=== PATIENT | female | born 1950 | race Caucasian/White ===

== ENCOUNTER 2024-03-03 14:12 | Outpatient (CLI) | payer MEDICARE, SELFPAY ==
--- NOTE | ~2024-03-03 | MM_ITS ---
EXAMINATION: MM screening eugenie BI w ramonita HISTORY: Screening TECHNIQUE: Craniocaudal and mediolateral oblique 3-D tomosynthesis images were obtained and synthetic 2-D images were generated. CAD analysis was submitted and interpreted. COMPARISON: No prior studies for comparison. BREAST PARENCHYMAL COMPOSITION: There are scattered areas of fibroglandular density. FINDINGS: There is no evidence of suspicious mass, calcification, or architectural distortion to sugg est malignancy in either breast. There has been no suspicious interval change. IMPRESSION: 1. No mammographic evidence of malignancy. 2. Recommend routine screening mammography in one year. BI-RADS Category 1: Negative Reviewed, dictated and finalized at location A.
== END 2024-03-03 14:13 | disposition home or self-care (01) ==
LOC: ANHIMG 14:15
PROVIDERS: PCP Internal Medicine; Visit Provider Obstetrics & Gynecology
DX: Z12.31 Encounter for screening mammogram for malignant neoplasm of breast (principal)
CPT/HCPCS: 77063; 77067

== ENCOUNTER 2024-10-10 13:31 | Outpatient (CLI) | payer MEDICARE, SELFPAY ==
--- NOTE | 2024-10-10 | ECG_ITS ---
Test Date: 2024-10-10 14:14:13 Measurements Intervals [place] Rate: 62 P: 65 CT: 160 QRS: 53 QRSD: 89 T: 47 QT: 416 QTc: 424 Interpretive Statements SINUS RHYTHM CONSIDER RIGHT VENTRICULAR CONDUCTION DELAY LOW QRS VOLTAGE IN PRECORDIAL LEADS BASELINE ARTIFACT- I, II, AVR, AVL BORDERLINE ECG No previous ECG available for comparison Electronically Signed On 10-10-2024 14:23:59 SCALLOPER by Ori Munson D.O.
== END 2024-10-10 13:32 | disposition home or self-care (01) ==
LOC: ANHIMG 13:36 → ANHCARD 13:39
PROVIDERS: PCP Internal Medicine; Visit Provider Podiatrist Foot & Ankle Surgery
DX: Z01.818 Encounter for other preprocedural examination (principal); I45.9 Conduction disorder, unspecified
CPT/HCPCS: 93005

== ENCOUNTER 2024-11-30 10:40 | Outpatient (CLI) | payer MEDICARE, SELFPAY ==
--- NOTE | ~2024-11-30 | DEXA_ITS ---
Bone Density Report Name: AMBER REES Age: 74 Sex: Female Ethnicity: White Date of : 1950 Indication: postmenopausal; screening for osteoporosis; hysterectomy; Referring Provider: CLAIR, SELENE Espinoza Study: Bone densitometry was performed. Exam Date: November 30, 2024 Accession number: [id number] Bone Density: Region BMD T-score Z-score Classification AP Spine(L1-L4) 1.013 -0.3 2.0 Normal Femoral Neck (Left) 0.803 -0.4 1.6 Normal Total Hip (Left) 0.892 -0.4 1.3 Normal Femoral Neck (Right) 0.821 -0.3 1.8 Normal Total Hip (Right) 0.903 -0.3 1.4 Normal Total Hip Mean 0.898 -0.4 1.4 Normal World Health Organization criteria for BMD impression classify patients as: Normal (T-score at or above -1.0), Osteopenia (T-score between -1.0 and -2.5), or Osteoporosis (T-score at or below -2.5). 10-year Fracture Risk: FRAX not reported because: All T-scores for Spine Total, Hip Total, Femoral Neck at or above -1.0 Clinical Information Provided by Patient: Smokes Has used the following medications: Boniva (i.e. ibandronate), Fosamax (i.e. alendronate), HRT (i.e. estrogen/hormone therapy), Vitamin D Has the following medical conditions: Hysterectomy, hypothyroid Patient maximum height was 61.5 Menopause Age: 41 Onset of menses at age 13 Number of children 1 Impression: The patient has normal bone mass. The patient has risk factors, including: smoking. Discussion: BONE DENSITY IS ABOVE THE MINIMUM DESIRABLE LEVEL AT ALL SKELETAL SITES TESTED. This patient?s bone mineral density is above the minimum desirable level (T-score -1.0 or better) at all sites measured. The patient should follow a healthful lifestyle (good nutrition with adequate calcium and vitamin D, and appropriate weight-bearing exercise). Follow-Up: Consider repeating this study in 5 years or sooner if there is some new clinical indication. Reported by: NARA on 11/30/2024 11:22:00 AM. Reviewed, dictated and finalized at location [facility]
== END 2024-11-30 10:41 | disposition home or self-care (01) ==
LOC: ANHIMG 10:41
PROVIDERS: PCP Internal Medicine; Visit Provider Internal Medicine
DX: Z78.0 Asymptomatic menopausal state (principal); Z13.820 Encounter for screening for osteoporosis
CPT/HCPCS: 77080

== ENCOUNTER 2025-04-10 15:51 | Outpatient (CLI) | payer MEDICARE, SELFPAY ==
--- NOTE | ~2025-04-10 | MM_ITS ---
EXAMINATION: MM screening eugenie BI w ramonita HISTORY: Screening TECHNIQUE: Craniocaudal and mediolateral oblique 3-D tomosynthesis images were obtained and synthetic 2-D images were generated. CAD analysis was submitted and interpreted. COMPARISON: Comparison to multiple prior studies sequentially, with oldest reviewed study dated 09/30. BREAST PARENCHYMAL COMPOSITION: Not dense: There are scattered areas of fibroglandular density. FINDINGS: There is no evidence of suspicious mass, calcification, or architectural distortion to sugg est malignancy in either breast. There has been no suspicious interval change. IMPRESSION: 1. No mammographic evidence of malignancy. 2. Recommend routine screening mammography in one year. BI-RADS Category 1: Negative Reviewed, dictated and finalized at location A.
--- OUTSIDE RECORDS SUMMARY | 2025-04-10 15:55 | XMS_ITS | Referral Summary ---
Author Organization [facility] Address [address] [place] [address] Care Team Providers Care Senior Consumer Insights Consultant Name Role Phone Ranjit Whaley MD Primary Care Provider [phone] Allergies Active Allergy Reactions Criticality Noted Date Comments Erythromycin Stomach upset Low 05/21/2020 Onion Diarrhea,Flatulence,Stomach upset Low Penicillins Rash Medium 05/21/2020 Medications fluticasone propionate (FLONASE) 50 mcg/actuation nasal spray Administer 1 spray into each nostril daily Active multivit-min/fe rrous fumarate (MULTI VITAMIN ORAL) Take by mouth Active aspirin 81 mg enteric coated tablet Take 81 mg by mouth daily Active folic acid (FOLVITE) 1 mg tablet Take 1 mg by mouth daily Active calcium carbonate (CALCIUM 500 ORAL) Take by mouth Active famotidine (PEPCID) 20 mg tablet Take by mouth daily as needed 2 Active rosuvastatin (CRESTOR) 5 mg tablet Take 1 tablet (5 mg total) by mouth daily 30 tablet 11 4 07/17/20 25 Active omeprazole (PriLOSEC) 20 mg capsule Take 1 capsule by mouth once daily 90 capsule 3 4 Active levothyroxine (SYNTHROID) 88 mcg tablet TAKE 1 TABLET BY MOUTH ONCE DAILY IN THE MORNING 90 tablet 3 4 Active losartan-hydroC HLOROthiazide (HYZAAR) 50-12.5 mg per tablet Take 1 tablet by mouth once daily 90 tablet 3 4 Active Active Problems Problem Noted Date Diagnosed Date Essential hypertension 07/14/2022 Hypothyroidism 07/14/2022 Hyperlipidemia 07/14/2022 Encounter for screening mamm ogram for malignant neoplasm of breast 07/14/2022 Menopause 07/14/2022 Mucous cyst of finger 06/05/2019 Overview (06/05/2019): Added automatically from request for surgery [id number] 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 Immunizations Immunization Administration Dates Next Due Influenza, Trivalent, High D ose, Split, Preservative Free, Intramuscular 09/08/2018,08/29/2017,08/31/2016 Influenza, Unspecified 09/08/2018,08/29/2017,01/2016 Pfizer SARS-CoV-2 Monovalent Vaccination (12+ Yrs) PURPLE 01/16/2021,12/25/2020 Pneumococcal Conjugate PCV 13 08/31/2016 Pneumococcal Polysaccharide PPV23 09/07/2017 ZOSTER LIVE 10/24/2013 Social History Tobacco Use Types Packs/Day Years Used Date Smoking Tobacco: Never Smokeless Tobacco: Never Tobacco Cessation:Counseling Given: Not Answered Alcohol Use Standard Drinks/Week Comments Yes 0 (1 standard drink = 0.6 oz pur e alcohol) PHQ-2 Answer Date Recorded PHQ-2 Total Score (If total score is 3 or more points, staff should administer the PHQ-9) 0 07/16/2024 Personal Safety Answer Date Recorded Getting School Help Needed Not on file 11/14 Comments Unknown Sex and Gender Information Value Date Recorded Sex Assigned at Not on file Legal Sex Female 3:02 AM ELECTRICIAN STATION ASSISTANT Gender Identity Not on file Sexual Orientation Not on file Occupation Industry Job Start Date Job End Date EMPLOYED Not on file Not on file Not on file Last Filed Vital Signs Vital Sign Reading Time Taken Comments Blood Pressure 136/82 07/17/2024 8:39 AM CDT Pulse 60 07/17/2024 8:39 AM CDT Temperature - - Respiratory Rate - - Oxygen Saturation - - Inhaled Oxygen Concentration - - Weight 63.5 kg (140 lb) 07/17/2024 8:39 AM CDT Height 157.5 cm (5' 2 ) 07/17/2024 8:39 AM CDT Body Mass Index 25.61 07/17/2024 8:39 AM CDT Plan of Treatment Not on file Procedures Procedure Name Priority Date/Time Associated Diagnosis Comments HEPATIC FUNCTION PANEL Routine 01/17/2025 7:30 AM ELECTRICIAN STATION ASSISTANT Hyperlipidemia, unspecified hyperlipidemia type LIPID PANEL Routine 01/17/2025 7:30 AM ELECTRICIAN STATION ASSISTANT Hyperlipidemia, unspecified hyperlipidemia type HEPATITIS C ANTIBODY Routine 07/17/2024 9:48 AM CDT Post-menopausal Hyperlipidemia, unspecified hyperlipidemia type Essential hypertension Hypothyroidism, unspecified type Routine general medical examination at a health care facility Encounter for hepatitis C screening test for low risk patient SCREENING MAMMOGRAM BILATERAL W [place] Schedule Routine, Read Routine (OP Routine) 11/24/2022 9:59 AM ELECTRICIAN STATION ASSISTANT Encounter for screening mammogram for malignant neoplasm of breast DEXA AXIAL SKELETON BONE DENSITY 1 OR MORE SITES Schedule Routine, Read Routine (OP Routine) 11/24/2022 9:26 AM ELECTRICIAN STATION ASSISTANT Menopause from Last 3 Months or Most Recently Relevant to Health Maintenance Results * Hepatic function panel (01/17/2025 7:30 AM ELECTRICIAN STATION ASSISTANT) Protein, Total 7.3 6.4 - 8.4 g/dL [facility] Albumin 4.7 3.6 - 5.1 g/dL [facility] Globulin 2.6 2.2 - 4.0 g/dL (calc) [facility] Alb/glob ratio 1.8 0.9 - 2.3 (calc) [facility] Bilirubin, total 0.4 0.2 - 1.2 mg/dL [facility] Bilirubin, direct 0.1 < OR = 0.2 mg/dL [facility] Bilirubin, indirect 0.3 0.2 - 1.2 mg/dL (calc) [facility] Alk phos 60 37 - 153 U/L [facility] AST 17 10 - 35 U/L [facility] ALT (SGPT) 8 6 - 29 U/L [facility] Blood 01/17/2025 7:30 AM ELECTRICIAN STATION ASSISTANT 01/17/2025 7:30 AM ELECTRICIAN STATION ASSISTANT Narrative [facility] - 01/18/2025 2:27 AM ELECTRICIAN STATION ASSISTANT FASTING:YES FASTING: YES Ranjit Whaley MD LAB BLOOD ORDERABLES Final Re sult Performing Organization Address [facility]/ZIP Co de Phone Number HERBERT [facility] [address] [phone] * Lipid panel (01/17/2025 7:30 AM ELECTRICIAN STATION ASSISTANT) Pathologist [facility] Cholesterol 196 <200 mg/dL [facility] HDL 86 > OR = 50 mg/dL [facility] Triglycerides 132 <150 mg/dL [facility] LDL 87 mg/dL (calc) [facility] Comment: Reference range: <100 Desirable range <100 mg/dL for primary prevention; <70 mg/dL for patients with CHD or diabetic patients with > or = 2 CHD risk factors. LDL-C is now calculated using the Chemo-Bradford calculation, which is a validated novel method providing better accuracy than the Friedewald equation in the estimation of LDL-C. Chemo SS et al. MEJIA. 2013;310(19): 0347-7951 (http://education.[employer].MetaNotes/faq/YSD912) Chol/HDL ratio 2.3 <5.0 (calc) [facility] Non-HDL, (LDL+VLDL) 110 <130 mg/dL (calc) [facility] Comment: For patients with diabetes plus 1 major ASCVD risk factor, treating to a non-HDL-C goal of <100 mg/dL (LDL-C of <70 mg/dL) is considered a therapeutic option. Blood 01/17/2025 7:30 AM ELECTRICIAN STATION ASSISTANT 01/17/2025 7:30 AM ELECTRICIAN STATION ASSISTANT Narrative [facility] - 01/18/2025 2:27 AM ELECTRICIAN STATION ASSISTANT FASTING:YES FASTING: YES Ranjit Whaley MD LAB BLOOD ORDERABLES Final Re sult Performing Organization Address City/[facility]/ZIP Co de Phone Number HERBERT [facility] [address] [phone] * Hepatitis C antibody Blood (07/17/2024 9:48 AM CDT) Hep C Ab Non Reactive Non Reactive [facility] - 01 Comment: HCV antibody alone does not differentiate between previously resolved infection and active infection. Equivocal and Reactive HCV antibody results should be followed up with an HCV RNA test to support the diagnosis of active HCV infection. Blood 07/17/2024 9:48 AM CDT 07/17/2024 Narrative [facility] - 07/18/2024 5:08 AM CDT Performed at: - [address] [id number] Sustainable Development Policy Analyst: Kedar Morrison PhD, Phone: [phone] us Ranjit Whaley MD LAB MICROBIOLOGY - GENERAL OR DERABLES Final Result [facility] - * Screening Mammogram Bilateral [place] (11/24/2022 9:59 AM ELECTRICIAN STATION ASSISTANT) Anatomical Region Laterality Modality Breast Bilateral Mammography Narrative 11/25/2022 4:31 PM ELECTRICIAN STATION ASSISTANT Mammogram Technique: Bilateral Digital Breast Tomosynthesis, Bilateral C-view 2D Screening mammogram. Views obtained: bilateral craniocaudal and bilateral mediolateral oblique. Computer Aided Detection was performed. Mammogram Findings: The present examination has been compared to prior imaging studies performed at [facility] on 11/17/2019, 11/19/2020 and 11/20/2021. There are scattered areas of fibroglandular density. There is no suspicious abnormality in either breast. Impression: There is no mammographic evidence of malignancy. Annual screening mammography is recommended. OVERALL FINAL ASSESSMENT: BI-RADS CATEGORY 1: Negative. Procedure Note Marah Armendariz MD - 11/25/2022 Mammogram Technique: Bilateral Digital Breast Tomosynthesis, Bilateral C-view 2D Screening mammogram. Views obtained: bilateral craniocaudal and bilateral mediolateral oblique. Computer Aided Detection was performed. Mammogram Findings: The present examination has been compared to prior imaging studies performed at [facility] on 11/17/2019, 11/19/2020 and 11/20/2021. There are scattered areas of fibroglandular density. There is no suspicious abnormality in either breast. Impression: There is no mammographic evidence of malignancy. Annual screening mammography is recommended. OVERALL FINAL ASSESSMENT: BI-RADS CATEGORY 1: Negative. us Ranjit Whaley MD IMG MAMMO PROCEDURES Final Re sult * Dexa Axial Skeleton Bone Density 1 or 2 Site (11/24/2022 9:26 AM ELECTRICIAN STATION ASSISTANT) Anatomical Region Laterality Modality Body N/A Digital Radiogra phy 11/24/2022 9:45 AM ELECTRICIAN STATION ASSISTANT Impressions 11/24/2022 10:06 AM ELECTRICIAN STATION ASSISTANT 1. The bone mineral density of the lumbar spine is normal. There has been no significant change in bone mineral density since the baseline examination of 09/06/2007. 2. The bone mineral density of the left femoral neck is normal. There has been no significant change in bone mineral density since the baseline examination of 09/06/2007. 3. The bone mineral density of the left total hip is normal. There has been a statistically significant decrease in bone mineral density since the baseline examination of 09/06/2007. 4. Overall, the above findings are normal by WHO criteria. 5. Calculation of fracture risk using the FRAX model is not appropriate in certain settings. It was not performed in this patient because the patient met the following condition(s): normal bone density. General comments regarding interpretation of bone density measurements: A) In children, premenopausal woman and males under age 50 not at increased risk for fractures only Z-scores, not T-scores are used to indicate risk. A Z-score above -2.0 is defined as within the expected range for age and Z-score at or less than -2.0 is below the expected range for age . A Z-score below the expected range for age in a patient with recent fractures and/or chronic corticosteroid treatment is consistent with a diagnosis of osteoporosis. B) In post menopausal women and males over 50, comparison of the measured bone mineral density with the average value in young normal subjects (the T-score ) has been found to be useful in assessing fracture risk. Fracture risk approximately doubles for each 1.0 standard deviation (SD) in individual's hip or spine bone mineral density is below the average value of young normal subjects. The World Health Organization (WHO) has defined T-scores of -1.0 to -2.5 as diagnostic of low bone mass (OSTEOPENIA), and T-scores of -2.5 or lower to be diagnostic of OSTEOPOROSIS, based on the site of lowest bone density. Note that there will be a change in reporting format and reference databases as patients move from the younger population (group A) to the older population (group B) The National Osteoporosis Foundation (www.nof.org) recommends adequate intake of calcium and vitamin D and regular weight-bearing exercise in all patients. They recommend pharmacologic treatment in postmenopausal women and men age 50 and older presenting with any of the followin) Osteoporosis, after appropriate evaluation to exclude secondary causes. 2) A hip or vertebral (clinical or radiographic) fracture, regardless of the bone density. 3) Low bone mass (Osteopenia) and one or more of: other prior fractures, secondary causes associated with high risk of fracture (such as glucocorticoid use or total immobilization), or computed high risk of fracture (10-yr probability of hip fracture >= 3% or a 10-yr probability of any major osteoporosis-related fracture >= 20% based on the [place].-adapted WHO algorithm), available at http://www.shef.ac.uk/FRAX). Dictated by: Alyce Buck MD The radiology attending physician has personally reviewed this study, and had reviewed and/or edited this written report and agrees with it. Electronically signed by: Ariel Bassett M.D. Narrative 11/24/2022 10:06 AM ELECTRICIAN STATION ASSISTANT BONE DENSITOMETRY OF THE SPINE AND HIP DATE OF STUDY: 11/24/2022 HISTORY: 72-year-old with a history of early menopause and no known prior diagnosis of low bone mineral density. She is not currently on any medications for bone mineral density. Evaluate bone mineral density. Additional risk factors for fracture: No FINDINGS (SPINE): The bone mineral density of L1, L3, L4 was assessed by dual-energy x-ray absorptiometry. The average bone mineral density within this region is 0.990 gm/sq-cm. This is 1.7 standard deviations above the mean of the average bone mineral density for age- and gender-matched subjects (the Z-score). It is 0.6 standard deviations below the mean peak bone mineral density in young adults (the T-score). FINDINGS (FEMORAL NECK): The bone mineral density of the left femoral neck was assessed by dual-energy x-ray absorptiometry. The average bone mineral density within the femoral neck region is 0.784 gm/sq-cm. This is 1.3 standard deviations above the mean of the average bone mineral density for age- and gender-matched subjects (the Z-score). It is 0.6 standard deviations below the mean peak bone mineral density in young adults (the T-score). FINDINGS (TOTAL HIP): The bone mineral density of the left hip was assessed by dual-energy x-ray absorptiometry. The average bone mineral density within the total hip region is 0.878 gm/sq-cm. This is 1.1 standard deviations above the mean of the average bone mineral density for age- and gender-matched subjects (the Z-score). It is 0.5 standard deviations below the mean peak bone mineral density in young adults (the T-score). SUMMARY OF CURRENT RESULTS: Region BMD T-score Z-score AP Spine (L1, L3, L4) 0.990 -0.6 1.7 Femoral Neck (Left) 0.784 -0.6 1.3 Total Hip (Left) 0.878 -0.5 1.1 COMPARISON WITH PREVIOUS RESULTS Region Age BMD T-score BMD Change BMD Change Exam Date g/cm2 vs Baseline vs Previous AP Spine (L1,L3-L4) 11/24/2022 72 0.990 -0.6 0.8%# -4.1%* 11/19/2020 70 1.033 -0.2 5.2%# 0.4%# 11/16/2018 68 1.029 -0.2 4.8%* 0.2% 10/29/2016 66 1.027 -0.2 4.5%* 1.1% 11/20/2014 64 1.016 -0.3 3.4%* 0.2% 09/09/2009 59 1.014 -0.4 3.2%* 3.2%* 09/06/2007 56 0.982 -0.6 Femoral Neck(Left) 11/24/2022 72 0.784 -0.6 2.8%# -4.2%* 11/19/2020 70 0.818 -0.3 7.3%# 9.5%# 11/16/2018 68 0.747 -0.9 -2.0% -4.7%* 10/29/2016 66 0.784 -0.6 2.9% 3.3% 11/20/2014 64 0.759 -0.8 -0.5% -1.3% 09/09/2009 59 0.768 -0.7 0.8% 0.8% 09/06/2007 56 0.762 -0.8 Total Hip(Left) 11/24/2022 72 0.878 -0.5 -4.9%# -4.2%* 11/19/2020 70 0.916 -0.2 -0.7%# 0.6%# 11/16/2018 68 0.911 -0.3 -1.4% -6.8%* 10/29/2016 66 0.977 0.3 5.8%* 2.7% 11/20/2014 64 0.951 0.1 3.0%* 0.3% 09/09/2009 59 0.949 0.1 2.8% 2.8% 09/06/2007 56 0.923 -0.2 *Denotes significance at 95% confidence level # Denotes dissimilar scan types or analysis methods Procedure Note Ariel Bassett MD - 11/24/2022 BONE DENSITOMETRY OF THE SPINE AND HIP DATE OF STUDY: 11/24/2022 HISTORY: 72-year-old with a history of early menopause and no known prior diagnosis of low bone mineral density. She is not currently on any medications for bone mineral density. Evaluate bone mineral density. Additional risk factors for fracture: No FINDINGS (SPINE): The bone mineral density of L1, L3, L4 was assessed by dual-energy x-ray absorptiometry. The average bone mineral density within this region is 0.990 gm/sq-cm. This is 1.7 standard deviations above the mean of the average bone mineral density for age- and gender-matched subjects (the Z-score). It is 0.6 standard deviations below the mean peak bone mineral density in young adults (the T-score). FINDINGS (FEMORAL NECK): The bone mineral density of the left femoral neck was assessed by dual-energy x-ray absorptiometry. The average bone mineral density within the femoral neck region is 0.784 gm/sq-cm. This is 1.3 standard deviations above the mean of the average bone mineral density for age- and gender-matched subjects (the Z-score). It is 0.6 standard deviations below the mean peak bone mineral density in young adults (the T-score). FINDINGS (TOTAL HIP): The bone mineral density of the left hip was assessed by dual-energy x-ray absorptiometry. The average bone mineral density within the total hip region is 0.878 gm/sq-cm. This is 1.1 standard deviations above the mean of the average bone mineral density for age- and gender-matched subjects (the Z-score). It is 0.5 standard deviations below the mean peak bone mineral density in young adults (the T-score). SUMMARY OF CURRENT RESULTS: Region BMD T-score Z-score AP Spine (L1, L3, L4) 0.990 -0.6 1.7 Femoral Neck (Left) 0.784 -0.6 1.3 Total Hip (Left) 0.878 -0.5 1.1 COMPARISON WITH PREVIOUS RESULTS Region Age BMD T-score BMD Change BMD Change Exam Date g/cm2 vs Baseline vs Previous AP Spine (L1,L3-L4) 11/24/2022 72 0.990 -0.6 0.8%# -4.1%* 11/19/2020 70 1.033 -0.2 5.2%# 0.4%# 11/16/2018 68 1.029 -0.2 4.8%* 0.2% 10/29/2016 66 1.027 -0.2 4.5%* 1.1% 11/20/2014 64 1.016 -0.3 3.4%* 0.2% 09/09/2009 59 1.014 -0.4 3.2%* 3.2%* 09/06/2007 56 0.982 -0.6 Femoral Neck(Left) 11/24/2022 72 0.784 -0.6 2.8%# -4.2%* 11/19/2020 70 0.818 -0.3 7.3%# 9.5%# 11/16/2018 68 0.747 -0.9 -2.0% -4.7%* 10/29/2016 66 0.784 -0.6 2.9% 3.3% 11/20/2014 64 0.759 -0.8 -0.5% -1.3% 09/09/2009 59 0.768 -0.7 0.8% 0.8% 09/06/2007 56 0.762 -0.8 Total Hip(Left) 11/24/2022 72 0.878 -0.5 -4.9%# -4.2%* 11/19/2020 70 0.916 -0.2 -0.7%# 0.6%# 11/16/2018 68 0.911 -0.3 -1.4% -6.8%* 10/29/2016 66 0.977 0.3 5.8%* 2.7% 11/20/2014 64 0.951 0.1 3.0%* 0.3% 09/09/2009 59 0.949 0.1 2.8% 2.8% 09/06/2007 56 0.923 -0.2 *Denotes significance at 95% confidence level # Denotes dissimilar scan types or analysis methods IMPRESSION: 1. The bone mineral density of the lumbar spine is normal. There has been no significant change in bone mineral density since the baseline examination of 09/06/2007. 2. The bone mineral density of the left femoral neck is normal. There has been no significant change in bone mineral density since the baseline examination of 09/06/2007. 3. The bone mineral density of the left total hip is normal. There has been a statistically significant decrease in bone mineral density since the baseline examination of 09/06/2007. 4. Overall, the above findings are normal by WHO criteria. 5. Calculation of fracture risk using the FRAX model is not appropriate in certain settings. It was not performed in this patient because the patient met the following condition(s): normal bone density. General comments regarding interpretation of bone density measurements: A) In children, premenopausal woman and males under age 50 not at increased risk for fractures only Z-scores, not T-scores are used to indicate risk. A Z-score above -2.0 is defined as within the expected range for age and Z-score at or less than -2.0 is below the expected range for age . A Z-score below the expected range for age in a patient with recent fractures and/or chronic corticosteroid treatment is consistent with a diagnosis of osteoporosis. B) In post menopausal women and males over 50, comparison of the measured bone mineral density with the average value in young normal subjects (the T-score ) has been found to be useful in assessing fracture risk. Fracture risk approximately doubles for each 1.0 standard deviation (SD) in individual's hip or spine bone mineral density is below the average value of young normal subjects. The World Health Organization (WHO) has defined T-scores of -1.0 to -2.5 as diagnostic of low bone mass (OSTEOPENIA), and T-scores of -2.5 or lower to be diagnostic of OSTEOPOROSIS, based on the site of lowest bone density. Note that there will be a change in reporting format and reference databases as patients move from the younger population (group A) to the older population (group B) The National Osteoporosis Foundation (www.nof.org) recommends adequate intake of calcium and vitamin D and regular weight-bearing exercise in all patients. They recommend pharmacologic treatment in postmenopausal women and men age 50 and older presenting with any of the followin) Osteoporosis, after appropriate evaluation to exclude secondary causes. 2) A hip or vertebral (clinical or radiographic) fracture, regardless of the bone density. 3) Low bone mass (Osteopenia) and one or more of: other prior fractures, secondary causes associated with high risk of fracture (such as glucocorticoid use or total immobilization), or computed high risk of fracture (10-yr probability of hip fracture >= 3% or a 10-yr probability of any major osteoporosis-related fracture >= 20% based on the [place].-adapted WHO algorithm), available at http://www.shef.ac.uk/FRAX). Dictated by: Alyce Buck MD The radiology attending physician has personally reviewed this study, and had reviewed and/or edited this written report and agrees with it. Electronically signed by: Ariel Bassett M.D. Ranjit Whaley MD IMG DXA PROCEDURES Final Resu lt from Last 3 Months or Most Recently Relevant to Health Maintenance Insurance MEDICARE AET SENIOR SUPPLEMENT AETNA [facility] RE[facility] AETNA MEDICARE GOLD AETNA MEDICARE GOLD AETNA MEDICARE GOLD Care Teams Senior Consumer Insights Consultant Relationship Specialty Start Date End Date Ranjit Whaley MD PCP - General Internal Medicine 05/06/20
--- OUTSIDE RECORDS SUMMARY | 2025-04-10 15:55 | XMS_ITS | Encounter Summary ---
Author Organization [facility] Healthcare Address [address] [place] [address] Care Team Providers Care Bread Pan Greaser Name Role Phone Ranjit Whaley MD Primary Care Provider [phone] Reason for Referral * Diagnostic Imaging (Routine) - Closed Specialty Diagnoses / Procedures Referred By Ron t Referred To Contact Diagnoses Osteopenia, unspecified location Procedures Dexa Axial Skeleton Bone Density 1 or 2 Site Ranjit Whaley MD Phone: tel: fax: [address] [phone] Referral ID Status Reason Start Date Expiration Date Visits Re quested Visits Authorized [id number] Closed 07/02/2020 08/01/2021 1 1 * Diagnostic Imaging (Routine) - Closed Specialty Diagnoses / Procedures Referred By Contmaged t Referred To Contact Diagnoses Other screening mammogram Procedures Screening Mammogram Bilateral W Lyndon Ranjit Whaley MD Phone: tel: fax: [address] [phone] Referral ID Status Reason Start Date Expiration Date Visits Re quested Visits Authorized [id number] Closed 07/02/2020 08/01/2021 1 1 Encounter Details Date Type Department Care Team (Late st Contact Info) Description 07/02/2020 Orders Only Internal Medicine Ranjit Whaley MD [address] [address] Osteopenia, unspecified location (Primary Dx); Other screening mammogram Social History Tobacco Use Types Packs/Day Years Used Date Smoking Tobacco: Never Smokeless Tobacco: Never Alcohol Use Standard Drinks/Week Comments Yes 0 (1 standard drink = 0.6 oz pur e alcohol) Comments Unknown Sex and Gender Information Value Date Recorded Sex Assigned at Not on file Legal Sex Female 3:02 AM EXCELLENCE SPECIALIST Gender Identity Not on file Sexual Orientation Not on file Occupation Industry Job Start Date Job End Date EMPLOYED Not on file Not on file Not on file documented as of this encounter Progress Notes * Paulette Jj - 07/02/2020 9:05 AM CDT ammogram documented in this encounter Plan of Treatment Not on file documented as of this encounter Results * Screening Mammogram Bilateral W Lyndon (11/19/2020 12:19 PM EXCELLENCE SPECIALIST) Anatomical Region Laterality Modality Breast Bilateral Mammography Narrative 11/25/2020 4:07 PM EXCELLENCE SPECIALIST Mammogram Technique: Bilateral Digital Breast Tomosynthesis, Bilateral C-view 2D Screening mammogram. Views obtained: bilateral craniocaudal and bilateral mediolateral oblique. Computer Aided Detection was performed. Mammogram Findings: The present examination has been compared to prior imaging studies performed at [facility] on 11/01/2017, 11/16/2018 and 11/17/2019. There are scattered areas of fibroglandular density. There is no suspicious abnormality in either breast. Impression: There is no mammographic evidence of malignancy. Annual screening mammography is recommended. OVERALL FINAL ASSESSMENT: BI-RADS CATEGORY 1: Negative. Procedure Note Livier Gurrola MD - 11/25/2020 Mammogram Technique: Bilateral Digital Breast Tomosynthesis, Bilateral C-view 2D Screening mammogram. Views obtained: bilateral craniocaudal and bilateral mediolateral oblique. Computer Aided Detection was performed. Mammogram Findings: The present examination has been compared to prior imaging studies performed at [facility] on 11/01/2017, 11/16/2018 and 11/17/2019. There are scattered areas of fibroglandular density. There is no suspicious abnormality in either breast. Impression: There is no mammographic evidence of malignancy. Annual screening mammography is recommended. OVERALL FINAL ASSESSMENT: BI-RADS CATEGORY 1: Negative. us Ranjit Whaley MD IMG MAMMO PROCEDURES Final Re sult * Dexa Axial Skeleton Bone Density 1 or 2 Site (11/19/2020 11:12 AM EXCELLENCE SPECIALIST) Anatomical Region Laterality Modality Body N/A Digital Radiogra phy 11/19/2020 11:1 7 AM EXCELLENCE SPECIALIST Impressions 11/19/2020 11:25 AM EXCELLENCE SPECIALIST 1. The bone mineral density of the lumbar spine is normal. There has been a statistically significant increase in bone mineral density since the baseline examination of 09/06/2007. 2. The bone mineral density of the left femoral neck is normal. There has been a statistically significant increase in bone mineral density since the baseline examination of 09/06/2007. 3. The bone mineral density of the left total hip is normal. There has been no significant change in bone mineral density since the baseline examination of 09/06/2007. 4. Overall, the above findings are normal by WHO criteria. 5. Calculation of fracture risk using the FRAX model is not appropriate in certain settings. It was not performed in this patient because the patient met the following condition: normal bone mineral density. General comments regarding interpretation of bone [...] WHO algorithm), available at http://www.shef.ac.uk/FRAX). Dictated by: Alcon Andersen M.D. The radiology attending physician has personally reviewed this study, and had reviewed and/or edited this written report and agrees with it. Electronically signed by: Ozzy Man M.D., Ph.D. 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 She is being treated with calcium and vitamin D. Evaluate bone mineral density. Additional risk factors for fracture: Early menopause. FINDINGS (SPINE): The bone mineral density of L1-L4 was assessed by dual-energy x-ray absorptiometry. The average bone mineral density within this region is 1.024 gm/sq-cm. This is 1.9 standard deviations above the mean of the average bone mineral density for age- and gender-matched subjects (the Z-score). It is 0.2 standard deviations below the mean peak bone mineral density in young adults (the T-score). FINDINGS (FEMORAL NECK): The bone mineral density of the left femoral neck was assessed by dual-energy x-ray absorptiometry. The average bone mineral density within the femoral neck region is 0.818 gm/sq-cm. This is 1.5 standard deviations above the mean of the average bone mineral density for age- and gender-matched subjects (the Z-score). It is 0.3 standard deviations below the mean peak bone mineral density in young adults (the T-score). FINDINGS (TOTAL HIP): The bone mineral density of the left hip was assessed by dual-energy x-ray absorptiometry. The average bone mineral density within the total hip region is 0.916 gm/sq-cm. This is 1.3 standard deviations above the mean of the average bone mineral density for age- and gender-matched subjects (the Z-score). It is 0.2 standard deviations below the mean peak bone mineral density in young adults (the T-score). SUMMARY OF CURRENT RESULTS: Region BMD T-score Z-score AP Spine (L1-L4) 1.024 -0.2 1.9 Femoral Neck (Left) 0.818 -0.3 1.5 Total Hip (Left) 0.916 -0.2 1.3 COMPARISON WITH PREVIOUS RESULTS Region Age BMD T-score BMD Change BMD Change Exam Date g/cm2 vs Baseline vs Previous AP Spine (L1-L4) 11/19/2020 70 1.024 -0.2 5.0%# -0.1%# 11/16/2018 68 1.025 -0.2 5.0%* -1.3% 10/29/2016 66 1.038 -0.1 6.4%* 2.8%* 11/20/2014 64 1.010 -0.3 3.5%* 0.4% 09/09/2009 59 1.006 -0.4 3.1%* 3.1%* 09/06/2007 56 0.976 -0.6 Femoral Neck(Left) 11/19/2020 70 0.818 -0.3 7.3%# 9.5%# 11/16/2018 68 0.747 -0.9 -2.0% -4.7%* 10/29/2016 66 0.784 -0.6 2.9% 3.3% 11/20/2014 64 0.759 -0.8 -0.5% -1.3% 09/09/2009 59 0.768 -0.7 0.8% 0.8% 09/06/2007 56 0.762 -0.8 Total Hip(Left) 11/19/2020 70 0.916 -0.2 -0.7%# 0.6%# 11/16/2018 68 0.911 -0.3 -1.4% -6.8%* 10/29/2016 66 0.977 0.3 5.8%* 2.7% 11/20/2014 64 0.951 0.1 3.0%* 0.3% 09/09/2009 59 0.949 0.1 2.8% 2.8% 09/06/2007 56 0.923 -0.2 *Denotes significance at 95% confidence level # Denotes dissimilar scan types or analysis methods Procedure Note Ozzy Man MD - 11/19/2020 BONE DENSITOMETRY OF THE SPINE AND HIP DATE OF STUDY: 11/19/2020 HISTORY: 70-year-old postmenopausal woman with 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 She is being treated with calcium and vitamin D. Evaluate bone mineral density. Additional risk factors for fracture: Early menopause. FINDINGS (SPINE): The bone mineral density of L1-L4 was assessed by dual-energy x-ray absorptiometry. The average bone mineral density within this region is 1.024 gm/sq-cm. This is 1.9 standard deviations above the mean of the average bone mineral density for age- and gender-matched subjects (the Z-score). It is 0.2 standard deviations below the mean peak bone mineral density in young adults (the T-score). FINDINGS (FEMORAL NECK): The bone mineral density of the left femoral neck was assessed by dual-energy x-ray absorptiometry. The average bone mineral density within the femoral neck region is 0.818 gm/sq-cm. This is 1.5 standard deviations above the mean of the average bone mineral density for age- and gender-matched subjects (the Z-score). It is 0.3 standard deviations below the mean peak bone mineral density in young adults (the T-score). FINDINGS (TOTAL HIP): The bone mineral density of the left hip was assessed by dual-energy x-ray absorptiometry. The average bone mineral density within the total hip region is 0.916 gm/sq-cm. This is 1.3 standard deviations above the mean of the average bone mineral density for age- and gender-matched subjects (the Z-score). It is 0.2 standard deviations below the mean peak bone mineral density in young adults (the T-score). SUMMARY OF CURRENT RESULTS: Region BMD T-score Z-score AP Spine (L1-L4) 1.024 -0.2 1.9 Femoral Neck (Left) 0.818 -0.3 1.5 Total Hip (Left) 0.916 -0.2 1.3 COMPARISON WITH PREVIOUS RESULTS Region Age BMD T-score BMD Change BMD Change Exam Date g/cm2 vs Baseline vs Previous AP Spine (L1-L4) 11/19/2020 70 1.024 -0.2 5.0%# -0.1%# 11/16/2018 68 1.025 -0.2 5.0%* -1.3% 10/29/2016 66 1.038 -0.1 6.4%* 2.8%* 11/20/2014 64 1.010 -0.3 3.5%* 0.4% 09/09/2009 59 1.006 -0.4 3.1%* 3.1%* 09/06/2007 56 0.976 -0.6 Femoral Neck(Left) 11/19/2020 70 0.818 -0.3 7.3%# 9.5%# 11/16/2018 68 0.747 -0.9 -2.0% -4.7%* 10/29/2016 66 0.784 -0.6 2.9% 3.3% 11/20/2014 64 0.759 -0.8 -0.5% -1.3% 09/09/2009 59 0.768 -0.7 0.8% 0.8% 09/06/2007 56 0.762 -0.8 Total Hip(Left) 11/19/2020 70 0.916 -0.2 -0.7%# 0.6%# 11/16/2018 68 0.911 -0.3 -1.4% -6.8%* 10/29/2016 66 0.977 0.3 5.8%* 2.7% 11/20/2014 64 0.951 0.1 3.0%* 0.3% 09/09/2009 59 0.949 0.1 2.8% 2.8% 09/06/2007 56 0.923 -0.2 *Denotes significance at 95% confidence level # Denotes dissimilar scan types or analysis methods IMPRESSION: 1. The bone mineral density of the lumbar spine is normal. There has been a statistically significant increase in bone mineral density since the baseline examination of 09/06/2007. 2. The bone mineral density of the left femoral neck is normal. There has been a statistically significant increase in bone mineral density since the baseline examination of 09/06/2007. 3. The bone mineral density of the left total hip is normal. There has been no significant change in bone mineral density since the baseline examination of 09/06/2007. 4. Overall, the above findings are normal by WHO criteria. 5. Calculation of fracture risk using the FRAX model is not appropriate in certain settings. It was not performed in this patient because the patient met the following condition: normal bone mineral density. General comments regarding interpretation of bone [...] WHO algorithm), available at http://www.shef.ac.uk/FRAX). Dictated by: Alcon Andersen M.D. The radiology attending physician has personally reviewed this study, and had reviewed and/or edited this written report and agrees with it. Electronically signed by: Ozzy Man M.D., Ph.D. us Ranjit Whaley MD IMG DXA PROCEDURES Final Resu lt documented in this encounter Visit Diagnoses Diagnosis Osteopenia, unspecified location- Primary Other screening mammogram Other screening mammogram Osteopenia, unspecified location documented in this encounter Care Teams Bread Pan Greaser Relationship Specialty Start Date End Date Ranjit Whaley MD PCP - General Internal Medicine 05/06/20 documented as of this encounter
--- OUTSIDE RECORDS SUMMARY | 2025-04-10 15:55 | XMS_ITS | Encounter Summary ---
Author Organization [facility] Health Address [address] [place] [address] Care Team Providers Care Group Practice Pediatrician Name Role Phone Ranjit Whaley MD Primary Care Provider [phone] Encounter Details Date Type Department Care Team (Late st Contact Info) Description 09/28/2019 Lab Requisition [facility] Care DermPath Lab [address] [place] [address] Preston Macias MD [address] [place] [address] Social History Tobacco Use Types Packs/Day Years Used Date Smoking Tobacco: Never Alcohol Use Standard Drinks/Week Comments Yes 0 (1 standard drink = 0.6 oz pur e alcohol) occasionally Comments No Sex and Gender Information Value Date Recorded Sex Assigned at Female 03/10/2022 9:09 PM CDT Legal Sex Female 6:27 AM PHONE SCREENER Gender Identity Female 03/10/2022 9:09 PM CDT Sexual Orientation Straight 03/10/2022 9: 09 PM CDT documented as of this encounter Plan of Treatment Not on file documented as of this encounter Procedures Procedure Name Priority Date/Time Associated Diagnosis Comments DERMATOPATHOLOGY Routine 09/27/2019 12:0 0 AM CDT documented in this encounter Results * DERMATOPATHOLOGY (09/27/2019 12:00 AM CDT) Case Report Dermatopathology Report Case: [id number] Authorizing Provider: Preston Macias MD Collected: 09/27/2019 12:00 AM Ordering Location: [facility] DermPath Lab Received: 09/28/2019 01:05 PM Pathologist: Rina Rainey MD Specimen: Skin, right nasal tip 11:57 AM [facility] DERMATOPATHOLOGY [facility]ORAT[facility] Final Diagnosis Specimen A. SKIN, right nasal tip: INTRADERMAL MELANOCYTIC NEVUS, CONSISTENT WITH SUPERFICIAL ASPECT OF (D22.39) (see microscopic description) 11:57 AM [facility] DERMATOPATHOLOGY [facility]ORAT[facility] Clinical History R/O BCC. 11:57 AM [facility] DERMATOPATHOLOGY [facility] Gross Description Specimen A: Received is one formalin filled container labeled with the patient's name and designated right nasal tip. The specimen consists of a shave biopsy measuring [id number]. Jar 0. 11:57 AM [facility] DERMATOPATHOLOGY [facility]OR[facility] Microscopic Description Specimen A. SKIN, right nasal tip: At the base of the specimen, there is a minute focus of cytologically bland melanocytes arranged in nests and single cells within the dermis, best seen on slide A1-2. Additional deeper sections were obtained and reviewed. 11:57 AM [facility] DERMATOPATHOLOGY [facility]OR[facility] Disclaimer An external and internal positive and negative controls are appropriate for the histochemical, immunohistochemical and immunofluorescence stain(s) in this case (if any), except where stated explicitly. The performance characteristics of the stain(s) cited in this report were developed and its performance characteristic determined by the Dermatopathology Laboratory at [facility], directed by Dr. Mara Cruz. These tests need not be, and therefore are not, approved by the [place] Food and Drug Administration. The tests are used for clinical purposes. Billing Codes Specimen Charges Stain Charges 16116 1 11:57 AM [facility] DERMATOPATHOLOGY [facility]OR[facility] Embedded Images 11:57 AM [facility] DERMATOPATHOLOGY [facility]OR[facility] Pathology/Cytolog y TISSUE SPECIMEN FROM SKIN / Unknown 09/27/2019 09/28/2019 1:05 PM CDT Preston Macias MD LAB - PATHOLOGY/CYTOLOGY ORD ERABLES Final Result DERMATOPATHOLOGY LABORATORY [facility] - Department of Dermatology [address] Lab [address] [phone] documented in this encounter Visit Diagnoses Not on filedocumented in this encounter Care Teams Group Practice Pediatrician Relationship Specialty Start Date End Date Ranjit Whaley MD [address] [place] [address] PCP - General Internal Medicine 12/16/21 documented as of this encounter
--- OUTSIDE RECORDS SUMMARY | 2025-04-10 15:55 | XMS_ITS | Clinical Summary ---
Author Organization [facility] Address [address] [place] [address] Care Team Providers Care Line Staker Name Role Phone Ranjit Whaley MD Primary Care Provider [phone] Source Comments [facility],non-[facility] Affiliates and Associated Physician Practices is amultiple site organization consisting of ambulatory clinics and hospital sitesin [place], [place], [place] and [place]. This disclosure is being madepursuant to the Care Everywhere program and may not contain all information available regarding this patient. Last updated 18.[facility] Allergies Active Allergy Reactions Criticality Noted Date Comments Erythromycin 10/22/2010 Onion Diarrhea,GI Discomfort Low 05/19/2019 Penicillins 10/22/2010 Medications * Be aware that medications may not be up to date on this document. Alwaysverify current medications with the patient. levothyroxine (SYNTHROID) 88 MCG tablet Take 1 (one) tablet by mouth daily before breakfast Active simvastatin (ZOCOR) 20 MG tablet Take 1 (one) tablet by mouth at bedtime Active losartan-hydroC HLOROthiazide (HYZAAR) 100-12.5 MG tablet Take 1 (one) tablet by mouth once daily Active famotidine (PEPCID) 20 MG tabletIndicatio ns:Non-cardiac chest pain Take 1 (one) tablet by mouth as needed for Heartburn 30 tablet 3 2 Active HYDROcodone-belle taminophen (NORCO) 5-325 MG tablet Take 1 (one) tablet to 2 (two) tablets by mouth every 6 hours as needed for Pain 12 tablet 2 Active omeprazole (PriLOSEC) 20 MG capsuleIndicati ons:Non-cardiac chest pain Take 1 (one) capsule by mouth once daily 90 capsule 3 2 Active Immunizations Immunization Administration Dates Next Due Netotiate primary monoval ent 12+ yr 0.3mL Purple cap 01/16/2021,12/25/2020 INFLUENZA VACCINE, HIGH-DOSE , QUADR. (FLUZONE HIGH-DOSE QUADRIVALENT; 65Y+), 0.7 ML (HD-IIV4) 09/08/2018,08/29/2017,08/31/2016 PNEUMOCOCCAL PPSV23 09/07/2017 Pneumococcal Pcv13 Conj 08/31/2016 ZOSTER VACCINE, LIVE 10/24/2013 Family History Medical History Relation Name Comments Heart Failure Father Cancer Mother Relation Name Status Comments Father Mother Social History Tobacco Use Types Packs/Day Years Used Date Smoking Tobacco: Never Smokeless Tobacco: Never Alcohol Use Standard Drinks/Week Comments Yes 0 (1 standard drink = 0.6 oz pur e alcohol) occasionally AUDIT-C Answer Date Recorded Q1: How often do you have a drink containing alcohol? Never 04/14/2022 Q2: How many drinks containi ng alcohol do you have on a typical day when you are drinking? Patient does not drink Q3: How often do you have si x or more drinks on one occasion? Never 04/14/2022 Comments No Sex and Gender Information Value Date Recorded Sex Assigned at Female 03/10/2022 9:09 PM CDT Legal Sex Female 6:27 AM CORN DETASSELER MACHINE OPERATOR Gender Identity Female 03/10/2022 9:09 PM CDT Sexual Orientation Straight 03/10/2022 9: 09 PM CDT Last Filed Vital Signs Vital Sign Reading Time Taken Comments Blood Pressure 130/68 12/14/2023 11:46 AM CORN DETASSELER MACHINE OPERATOR Pulse 71 12/14/2023 11:46 AM CORN DETASSELER MACHINE OPERATOR Temperature 36.1 C (97 F) 12/14/2023 11:37 AM CORN DETASSELER MACHINE OPERATOR Respiratory Rate 18 12/14/2023 11:46 AM CORN DETASSELER MACHINE OPERATOR Oxygen Saturation 98% 12/14/2023 11:46 AM CORN DETASSELER MACHINE OPERATOR Inhaled Oxygen Concentration - - Weight 60.8 kg (134 lb) 12/14/2023 9:15 AM CORN DETASSELER MACHINE OPERATOR Height 157.5 cm (5' 2 ) 12/14/2023 9:15 AM CORN DETASSELER MACHINE OPERATOR Body Mass Index 24.51 12/14/2023 9:15 AM CORN DETASSELER MACHINE OPERATOR Plan of Treatment Health Maintenance Due Date Last Done Comments COLOGUARD (AGES 45-75) - COLON CA SCREENING 1950 CT COLONOGRAPHY - COLON CA SCREENING 1950 FIT - COLON CA SCREENING 1950 FLEX SIG - COLON CA SCREENING 1950 HEPATITIS C SCREENING 09/05/1968 DTAP/TDAP/TD VACCINES (1 - Tdap) 1969 ZOSTER VACCINE (2 of 3) 12/19/2013 10/24/2013 COVID-19 VACCINE (4 - season) 2024 09/02/2021, 01/16/2021, 12/25/2020 MAMMOGRAM 11/24/2024 11/24/2022, 10/30, 11/20/2021, Additional history exists DEPRESSION SCREENING 11/29/2024 MEDICARE AWV CALENDAR YEAR 2024 SCREENING FOR DIABETES 04/14/2025 04/14/2022 INFLUENZA VACCINE (Season Ended) 2025 09/02/2021, 08/27/2020, 09/08/2018, Additional history exists Respiratory Syncytial Virus (RSV) Vaccine Pt: or over 60 yrs (1 - 1-dose 75+ series) 2025 COLON MONITORING 12/14/2025 12/14/2023, , 12/14/2023, Additional history exists Colorectal Cancer Screening 12/14/2025 COLONOSCOPY - COLON CA SCREENING 12/14/2033 12/14/2023, 12/14/2023, 12/14/2023, Additional history exists PNEUMOCOCCAL VACCINE 50+ Completed 09/07/2017, 01/2016 BONE DENSITY TESTING Completed 11/24/2022, 11/19/2020, 11/16/2018, Additional history exists HEPATITIS B VACCINE Aged Out No longe r eligible based on patient's age to complete this topic HIB VACCINE Aged Out No longer eligi ble based on patient's age to complete this topic HPV VACCINE Aged Out No longer eligi ble based on patient's age to complete this topic MENINGOCOCCAL (Group B) VACCINE SHARED DECISION-MAKING Aged Out No longer eligible based on patient's age to complete this topic MENINGOCOCCAL GROUPS A/C/Y/W VACCINE Aged Out No longer eligible based on patient's age to complete this topic Procedures Procedure Name Priority Date/Time Associated Diagnosis Comments ENDOSCOPY, COLON, SCREENING Routine 12/14/2023 9:30 AM CORN DETASSELER MACHINE OPERATOR Screen for colon cancer COMPREHENSIVE METABOLIC PANEL Pre-Op 04/14/2022 8:13 AM CDT Pre-op exam from Last 3 Months or Most Recently Relevant to Health Maintenance Results * ENDOSCOPY, COLON, SCREENING (12/14/2023 9:30 AM CORN DETASSELER MACHINE OPERATOR) Report Endoscopy POC _ Patient Name: Amber Carey Procedure Date: 12/14/2023 9:30 AM Date of : 1950 Admit Type: Outpatient Age: 73 Gender: Female Ethnicity: Not or Race: White Attending MD: Jay Moss MD, [id number] _ Procedure: Colonoscopy Indications: Screening for colorectal malignant neoplasm Providers: Jay Moss MD (Doctor), Dalia Heredia RN, Shirley Garcia, Professor Of Environmental Studies Referring MD: Ranjit Whaley MD (Referring MD) Medicines: Monitored Anesthesia Care Complications: No immediate complications. _ Estimated Blood Loss: Estimated blood loss: none. Procedure: Pre-Anesthesia Assessment: - Prior to the procedure, a History and Physical was performed, and patient medications and allergies were reviewed. The patient's tolerance of previous anesthesia was also reviewed. The risks and benefits of the procedure and the sedation options and risks were discussed with the patient. All questions were answered, and informed consent was obtained. Prior Anticoagulants: The patient has taken no anticoagulant or antiplatelet agents. ASA Grade Assessment: II - A patient with mild systemic disease. After reviewing the risks and benefits, the patient was deemed in satisfactory condition to undergo the procedure. After I obtained informed consent, the scope was passed under direct vision. Throughout the procedure, the patient's blood pressure, pulse, and oxygen saturations were monitored continuously. The Colonoscope was introduced through the anus and advanced to the cecum, identified by appendiceal orifice and ileocecal valve. The colonoscopy was performed without difficulty. Impression: - Diverticulosis. - The ascending colon and cecum are normal. Biopsied. - The transverse colon is normal. Biopsied. - The sigmoid colon and descending colon are normal. Biopsied. - The rectum is normal. Biopsied. Findings: Diverticula were found in the colon. The ascending colon and cecum appeared normal. Biopsies were taken with a cold forceps for histology. Estimated blood loss: none. The transverse colon appeared normal. Biopsies were taken with a cold forceps for histology. Estimated blood loss: none. The sigmoid colon and descending colon appeared normal. Biopsies were taken with a cold forceps for histology. Estimated blood loss: none. The rectum appeared normal. Biopsies were taken with a cold forceps for histology. Estimated blood loss: none. _ Recommendation: - Written discharge instructions were provided to the patient. - The signs and symptoms of potential delayed complications were discussed with the patient. - Patient has a contact number available for emergencies. - Return to normal activities tomorrow. - Resume previous diet. - Continue present medications. - Await pathology results. - Repeat colonoscopy in 3 - 5 years for surveillance based on pathology results. Procedure Code(s): --- Professional --- 79496, Colonoscopy, flexible; with biopsy, single or multiple --- Technical --- 43177, Colonoscopy, flexible; with biopsy, single or multiple Diagnosis Code(s): --- Professional --- Z12.11, Encounter for screening for malignant neoplasm of colon K57.30, Diverticulosis of large intestine without perforation or abscess without bleeding --- Technical --- Z12.11, Encounter for screening for malignant neoplasm of colon K57.30, Diverticulosis of large intestine without perforation or abscess without bleeding CPT copyright 2020 [employer]. All rights reserved. The codes documented in this report are preliminary and upon fire equipment repairer inspector review may be revised to meet current compliance requirements. Jay Moss MD 12/14/2023 11:35:04 AM This report has been signed electronically. Number of Addenda: 0 Note Initiated On: 12/14/2023 9:30 AM [facility] 12/14/2023 9:30 AM CORN DETASSELER MACHINE OPERATOR us Jay Moss MD GI PROCEDURE ORDERABLES Edited R esult - Final [facility] * (ABNORMAL) COMPREHENSIVE METABOLIC PANEL (04/14/2022 8:13 AM CDT) Glucose 90 70 - 105 mg/dL 04/14/2022 8:45 AM CDT [facility] Sodium 141 136 - 145 mmol/L 04/14/2022 8:45 AM CDT [facility] Potassium 4.1 3.5 - 5.1 mmol/L 04/14/2022 8:45 AM CDT [facility] Chloride 106 98 - 107 mmol/L 04/14/2022 8:45 AM CDT [facility] CO2 25 23 - 31 mmol/L 04/14/2022 8:45 AM CDT [facility] Calcium 9.1 8.4 - 10.4 mg/dL 04/14/2022 8:45 AM CDT [facility] Anion Gap 10 8 - 18 mmol/L 04/14/2022 8:45 AM CDT [facility] BUN 16 9.8 - 20.1 mg/dL 04/14/2022 8:45 AM CDT [facility] Creatinine 1.01 0.57 - 1.11 mg/dL 04/14/2022 8:45 AM CDT [facility] Alkaline Phosphatase 48 40 - 150 U/L 04/14/2022 8:45 AM CDT [facility] ALT 13 0 - 61 U/L 04/14/2022 8:45 AM CDT [facility] AST 25 5 - 34 U/L 04/14/2022 8:45 AM CDT [facility] Protein Total 6.7 6.4 - 8.3 gm/dL 04/14/2022 8:45 AM CDT [facility] Albumin 3.9 3.2 - 4.6 gm/dL 04/14/2022 8:45 AM CDT [facility] Bilirubin Total 0.4 0.2 - 1.2 mg/dL 04/14/2022 8:45 AM CDT [facility] eGFR by CKD-EPI 60(L) >=90 mL/min/1.7 3 m2 04/14/2022 8:45 AM CDT [facility] Blood BLOOD SPECIMEN / Unknown Venipuncture / Unknown 04/14/2022 8:13 AM CDT 04/14/2022 8:26 AM CDT Homero Farah MD LAB - CHEMISTRY ORDERABLES Fin al Result [facility] [address] [place] [address] from Last 3 Months or Most Recently Relevant to Health Maintenance Insurance MEDICARE MEDICARE AETNA MEDICARE ADV [facility] MEDICARE AETNA Care Teams Line Staker Relationship Specialty Start Date End Date Ranjit Whaley MD [address] [address] PCP - General Internal Medicine 12/16/21
--- OUTSIDE RECORDS SUMMARY | 2025-04-10 15:55 | XMS_ITS | Clinical Summary ---
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 Immunizations Immunization Administration Dates Next Due Influenza, Trivalent, High D ose, Split, Preservative Free, Intramuscular 09/08/2018,08/29/2017,08/31/2016 Influenza, Unspecified 09/08/2018,08/29/2017,01/2016 Pfizer SARS-CoV-2 Monovalent Vaccination (12+ Yrs) PURPLE 01/16/2021,12/25/2020 Pneumococcal Conjugate PCV 13 08/31/2016 Pneumococcal Polysaccharide PPV23 09/07/2017 ZOSTER LIVE 10/24/2013 Surgical History Surgery Date Site/Laterality Comments WRIST GANGLION EXCISION 11/29/1967 - 11/28/1968 Left FINGER GANGLION CYST EXCISION 11/29/1986 - 11/28/1987 Le ft HYSTERECTOMY SQUAMOUS CELL CARCINOMA EXCISION 11/29/2008 - 11/28/2009 HAND SURGERY COSMETIC SURGERY Medical History Medical History Date Comments Personal history of other ma lignant neoplasm of skin History of basal cell cancer - (Added by TW Conv) Gastric reflux Heart murmur Inflammatory bowel disease Chronic kidney disease Hypertension Family History Medical History Relation Name Comments Gout Father Heart disease Father Cancer Mother Relation Name Status Comments [...] on file Legal Sex Female 3:02 AM MOBILE UI/UX DESIGNER Gender Identity Not on file Sexual Orientation Not on file Occupation Industry Job Start Date Job End Date EMPLOYED Not on file Not on file Not on file Obstetrics History Last Filed Vital Signs Vital Sign Reading [...] 07/17/2024 8:39 AM CDT Plan of Treatment Health Maintenance Due Date Last Done Comments DTaP/Tdap/Td Vaccine (1 - Tdap) 1961 Hepatitis B Screening 1968 Zoster Vaccine (2 of 3) 12/19/2013 10/24/2013 Covid-19 Vaccine (3 - 2023-2 5 season) 2024 01/16/2021, 12/25/2020 Osteoporosis Screening-Bone Density Scan 11/24/2024 11/24/2022, 11/19/2020, 11/16/2018, Additional history exists Breast Cancer Screening-Mammogram 03/03/2025 03/03/2024, 11/24/2022, 11/20/2021, Additional history exists Depression Screening 07/17/2025 07/17/2024, 07/15/2023, 07/14/2022, Additional history exists Fall Risk Assessment 07/17/2025 07/17/2024, 07/15/2023, 07/14/2022, Additional history exists Well Visit 65+ 07/17/2025 07/17/2024, 06/29, 07/14/2022, Additional history exists Influenza Vaccine (Season Ended) 2025 09/08/2018, 09/08/2018, 08/29/2017, Additional history exists Colon Cancer Screening-Colonoscopy 12/14/20332023 Pneumococcal vaccine 65+ Completed 09/07/2017, 01/2016 Hepatitis C Screening Completed 07/17/2024 Procedures Procedure Name Priority Date/Time Associated Diagnosis Comments HEPATIC FUNCTION PANEL Routine 01/17/2025 7:30 AM MOBILE UI/UX DESIGNER Hyperlipidemia, unspecified hyperlipidemia type LIPID PANEL Routine 01/17/2025 7:30 AM MOBILE UI/UX DESIGNER Hyperlipidemia, unspecified hyperlipidemia type HEPATITIS C ANTIBODY Routine 07/17/2024 9:48 AM CDT Post-menopausal Hyperlipidemia, unspecified hyperlipidemia type Essential hypertension Hypothyroidism, unspecified type Routine general medical examination at a health care facility Encounter for hepatitis C screening test for low risk patient SCREENING MAMMOGRAM BILATERAL W L[place]NDON Schedule Routine, Read Routine (OP Routine) 11/24/2022 9:59 AM MOBILE UI/UX DESIGNER Encounter for screening mammogram for malignant neoplasm of breast DEXA AXIAL SKELETON BONE DENSITY 1 OR MORE SITES Schedule Routine, Read Routine (OP Routine) 11/24/2022 9:26 AM MOBILE UI/UX DESIGNER Menopause from Last 3 Months or Most Recently Relevant to Health Maintenance Results * Hepatic function panel (01/17/2025 7:30 AM MOBILE UI/UX DESIGNER) Protein, Total 7.3 6.4 - 8.4 g/dL [...] [facility] Blood 01/17/2025 7:30 AM MOBILE UI/UX DESIGNER 01/17/2025 7:30 AM MOBILE UI/UX DESIGNER Narrative [facility] - 01/18/2025 2:27 AM MOBILE UI/UX DESIGNER FASTING:YES FASTING: YES us Ranjit Whaley MD LAB BLOOD ORDERABLES Final Re sult Performing Organization Address [facility]/ZIP Co de Phone Number [facility] [address] [phone] * Lipid panel (01/17/2025 7:30 AM MOBILE UI/UX DESIGNER) Cholesterol 196 <200 mg/dL [facility] [...] factors. LDL-C is now calculated using the Cheom-Felder calculation, which is a validated novel method providing better accuracy than the Friedewald equation in the estimation of LDL-C. Chemo SS et al. MEJIA. 2013;310(19): 5122-6616 (http://education.[employer]/faq/MLH628) Chol/HDL ratio 2.3 <5.0 (calc) [facility] Non-HDL, (LDL+VLDL) 110 <130 mg/dL (calc) [facility] Comment: For patients with diabetes plus 1 major ASCVD risk factor, treating to a non-HDL-C goal of <100 mg/dL (LDL-C of <70 mg/dL) is considered a therapeutic option. Blood 01/17/2025 7:30 AM MOBILE UI/UX DESIGNER 01/17/2025 7:30 AM MOBILE UI/UX DESIGNER Narrative [facility] - 01/18/2025 2:27 AM MOBILE UI/UX DESIGNER FASTING:YES FASTING: YES Ranjit Whaley MD LAB BLOOD ORDERABLES Final Re sult Performing Organization Address [facility] Co de Phone Number [facility] [address] [phone] * Hepatitis C antibody Blood (07/17/2024 9:48 AM CDT) Pathologist [facility] Hep C Ab Non Reactive Non Reactive [facility] - 01 Comment: HCV antibody alone does not differentiate between previously resolved infection and active infection. Equivocal and Reactive HCV antibody results should be followed up with an HCV RNA test to support the diagnosis of active HCV infection. Blood 07/17/2024 9:48 AM CDT 07/17/2024 Narrative [facility] - 07/18/2024 5:08 AM CDT Performed at: 01 - Lab[address] [id number] [employer]: Kedar Morrison PhD, Phone: [phone] us Ranjit Whaley MD LAB MICROBIOLOGY - GENERAL OR DERABLES Final Result [facility] - * Screening Mammogram Bilateral [place] (11/24/2022 9:59 AM MOBILE UI/UX DESIGNER) Anatomical Region Laterality Modality Breast Bilateral Mammography Narrative 11/25/2022 4:31 PM MOBILE UI/UX DESIGNER Mammogram Technique: Bilateral Digital Breast Tomosynthesis, Bilateral C-view 2D Screening mammogram. Views obtained: bilateral craniocaudal and bilateral mediolateral oblique. Computer Aided Detection was performed. Mammogram Findings: The present examination has been compared to prior imaging studies performed at [facility] on 11/17/2019, 11/19/2020 and 11/20/2021. There are [...] compared to prior imaging studies performed at [facility] on 11/17/2019, 11/19/2020 and 11/20/2021. There are scattered areas of fibroglandular density. There is no suspicious abnormality in either breast. Impression: There is no mammographic evidence of malignancy. Annual screening mammography is recommended. OVERALL FINAL ASSESSMENT: BI-RADS CATEGORY 1: Negative. us Ranjit Whaley MD IMG MAMMO PROCEDURES Final Re sult * Dexa Axial Skeleton Bone Density 1 or 2 Site (11/24/2022 9:26 AM MOBILE UI/UX DESIGNER) Anatomical Region Laterality Modality Body N/A Digital Radiogra phy 11/24/2022 9:45 AM MOBILE UI/UX DESIGNER Impressions 11/24/2022 10:06 AM MOBILE UI/UX DESIGNER 1. The bone mineral density of the [...] Ariel Bassett M.D. Narrative 11/24/2022 10:06 AM MOBILE UI/UX DESIGNER BONE DENSITOMETRY OF THE SPINE AND HIP [...] Recently Relevant to Health Maintenance Insurance MEDICARE AETNA SENIOR SUPPLEMENT AETNA [facility] GOLD REF AETNA MEDICARE GOLD AETNA MEDICARE GOLD AETNA MEDICARE GOLD Care Teams Systems Manager Relationship Specialty Start Date End Date Ranjit Whaley MD PCP - General Internal Medicine 05/06/20
== END 2025-04-10 15:52 | disposition home or self-care (01) ==
PROVIDERS: PCP Internal Medicine; Visit Provider Obstetrics & Gynecology
DX: Z12.31 Encounter for screening mammogram for malignant neoplasm of breast (principal)
CPT/HCPCS: 77063; 77067